=== PATIENT | male | born 1975 | race Caucasian/White ===

== ENCOUNTER 2016-12-15 13:10 | Emergency (ER) | payer SELFPAY ==
[~2016-12-15] VITALS: Ht 172.7 cm; Wt 100.0 kg
[~2016-12-15 13:10] MED LIST: DICL50 PO; LORT5TAB PO; Z.0.NO CURRENT MEDS
[2016-12-15 13:12] VITALS: BP 149/82; PULSE 86; RESP 20; TEMP 97.9; O2SAT 95
--- NOTE | 2016-12-15 14:07 | PD ---
HPI Chief Complaint: ENT Complaint Time Seen by Provider: 14:07 Travel History International Travel<30 days: No Contact w/Intl Traveler<30days: No Traveled to known affect area: No History of Present Illness HPI 41-year-old male presents to emergency department for evaluation of a bug in his left ear. Patient states he was cleaning out a home when a bunch of cockroaches fell out onto him. He believes one got into his left ear. States that he feels it moves. Reports some pain as though it is digging into his ear. Denies any other symptoms at this time. PFSH Past Medical History Medical History: Denies Significant Hx Tetanus Vaccination: Unknown ?: Not Past Surgical History Surgical History: No Previous Surgery Social History Alcohol Use: No Tobacco Use: Yes (/2 PPD) Substance Use: No Allergies-Medications (Allergen,Severity, Reaction): Coded Allergies: No Known Allergies (Verified , 12/15/16) Reported Meds & Prescriptions Reported Meds & Active Scripts Active Cipro Hc Otic Drops (Ciprofloxacin/Hydrocortisone) 0.2-1% Susp 3 Drop LEFT EAR BID Review of Systems Except as stated in HPI: all other systems reviewed are Neg Physical Exam Narrative GENERAL: Well-nourished, well-developed male patient in no acute distress SKIN: Focused skin assessment warm/dry. HEAD: Normocephalic. EARS: Bilateral pinnae and external canals appear within normal limits I am unable to visualize the left tympanic membrane due to a insect in the left canal. It is moving. EYES: No scleral icterus. No injection or drainage. NECK: Supple, trachea midline. No JVD or lymphadenopathy. CARDIOVASCULAR: Regular rate and rhythm without murmurs, gallops, or rubs. RESPIRATORY: Breath sounds equal bilaterally. No accessory muscle use. Data Data Last Documented VS Vital Signs Date Time Temp Pulse Resp B/P Pulse Ox O2 Delivery O2 Flow Rate FiO2 12/15/16 13:12 97.9 86 20 149/82 95 Room Air Orders Proparacaine 0.5% Opth Soln (Alcaine 0.5 (12/15/16 14:15) MDM Medical Decision Making Medical Screen Exam Complete: Yes Emergency Medical Condition: Yes Medical Record Reviewed: Yes Differential Diagnosis Foreign body versus tympanic membrane perforation versus otitis media versus otitis externa Narrative Course 41-year-old male presents per department for evaluation of an insect in his left ear. Insect is visualized and removed without difficulty by my colleague, NI Mccurdy. The external canal does have some mild irritation as residual. Patient will be started on otic antibiotic drops. He is encouraged follow-up with primary care provider and return immediately with any acute worsening symptoms. Diagnosis Primary Impression: Ear foreign body Qualified Code: T16.2XXA - Ear foreign body, left, initial encounter Additional Impression: Otitis externa Qualified Code: H60.502 - Acute otitis externa of left ear, unspecified type Referrals: Primary Care Physician Patient Instructions: Ear Foreign Body (ED), General Instructions Additional Instructions: Avoid foreign body in your ears Do not use Q-tips Follow-up with primary care Return immediately with any acute worsening of symptoms Med/Other Pt SpecificInfo: Prescription(s) given Scripts Ciprofloxacin-Hydrocortisone Otic Drops (Cipro Hc Otic Drops)0.2-1% Susp3 Drop LEFT EAR BID #1 BOTTLE Ref 0 Prov:Sivan Duffy 12/15/16 Disposition: 01 DISCHARGE HOME Condition: Stable Sivan Duffy Dec 15, 2016 14:07
[2016-12-15] MEDS ORDERED: PROPARACAINE HCL 0.5% OPHT SOLN 15 ML BTL EACH EYE ONE (14:15)
[2016-12-15] MEDS ORDERED: CIPRHC10A LEFT EAR (14:31)
--- NOTE | 2016-12-30 09:16 | PD ---
Physical Exam Date Seen by Provider: Dec 30, 2016 Time Seen by Provider: 09:14 Data Data Orders Proparacaine 0.5% Opth Soln (Alcaine 0.5 (12/15/16 14:15) MDM Medical Record Reviewed: Yes Supervised Visit with TRI: No Procedures Procedure Narrative Bug removal from ear: Using warm saline solution and a small syringe pressure water was applied to the right ear until the bug came out of the ear. After 3 trial bug came out with minimal dificulty. Patient had minimal pain. Ear was reassessed and appears to have otitis media with no perforated eardrum. Diagnosis Primary Impression: Ear foreign body Qualified Code: T16.2XXA - Ear foreign body, left, initial encounter Additional Impression: Otitis externa Qualified Code: H60.502 - Acute otitis externa of left ear, unspecified type Referrals: Primary Care Physician Patient Instructions: General Instructions, Ear Foreign Body (ED) Departure Forms: Tests/Procedures Additional Instruction: Avoid foreign body in your ears Do not use Q-tips Follow-up with primary care Return immediately with any acute worsening of symptoms Scripts Ciprofloxacin-Hydrocortisone Otic Drops (Cipro Hc Otic Drops)0.2-1% Susp3 Drop LEFT EAR BID #1 BOTTLE Ref 0 Prov:Sivan Duffy 12/15/16 Disposition: 01 DISCHARGE HOME Condition: Stable Mathieu Ortega Dec 30, 2016 09:16
== END 2016-12-15 15:01 | disposition home or self-care (01) ==
LOC: NEPK 13:10
DX: T16.2XXA Foreign body in left ear, initial encounter (principal); H60.502 Unspecified acute noninfective otitis externa, left ear; F17.200 Nicotine dependence, unspecified, uncomplicated
CPT/HCPCS: 69200